=== PATIENT | female | born 1940 | race Caucasian/White ===

== ENCOUNTER 2016-12-10 08:23 | Emergency (ER) | payer OTHER, MEDICARE ==
[2016-12-10 08:39] VITALS: BMI 34.3
--- NOTE | 2016-12-10 09:16 | PDOC ---
Attending Attestation - Resident Resident Name: Rosana Gayle - ED Attending Attestation I have performed the following: I have examined & evaluated the patient, The case was reviewed & discussed with the resident, I agree w/resident's findings & plan, Exceptions are as noted - HPI HPI: 12/10/16 09:15 The pt has a history of diverticulitis and cholelithiasis who presents with constant right upper quadrant pain. - Physicial Exam PE: 12/10/16 09:16 Vitals noted She has right upper quadrant tenderness on deep palpation - Medical Decision Making 12/10/16 09:16 Will obtain labs 12/10/16 13:18 CTs noted, without any significant abnormalities Labs noted Her chest pain is extremely atypical, and very consistent with a musculoskeletal etiology A negative troponin after so many hours of continuous chest pain has a very high negative predictive value Her daughter who is a nurse, feels that she is appropriate for discharge Clinical impression: Musculoskeletal chest pain I discussed the physical exam findings, ancillary test results and final diagnoses with the patient. I answered all of the patient's questions. The patient was satisfied with the care received and felt comfortable with the discharge plan and treatment plan. The patient will call their primary care physician within 24 hours to arrange follow-up and will return to the Emergency Department with any new, persistent or worsening symptoms. Discharge Disposition - Diagnosis Muscle strain, Muscle strain of chest wall - Discharge Dispostion Disposition: HOME Last Admission D/C Date: 11/22/09 - Referrals Referrals: Destin Liang MD [Primary Care Provider] - - Patient Instructions Printed Discharge Instructions: Muscle Strain Additional Instructions: You have pain due to muscle strain of your chest wall. your can apply icy hot and use warm compress. take tylenol according to label for pain, Return to ER if pain worsens or if you develop other symptoms such as shortness of breath, leg swelling, nausea. - Post Discharge Activity
--- NOTE | 2016-12-10 09:30 | PDOC ---
History of Present Illness - General Chief Complaint: Pain Stated Complaint: PAIN UNDER THE BREAST Time Seen by Provider: 12/10/16 08:53 History Source: Patient Exam Limitations: No Limitations - History of Present Illness Initial Comments: 12/10/16 09:26 This is a 76 yo F with PMH of diverticulitis (treated 4 yrs ago with abx) and asymptomatic gall stones, who presents with RUQ abd pain since 11 am yesterday. Pain has been constants, sharp, nonradiating, aggravated by deep inspiration. It is not associated with meals and she has not had this pain before. She denies associated n/v, diarrhea, constipation, last mormal bm yesterday, no melena or hematochezia. She denies chest pain, sob, cough, sick contacts, f/c. She denies recent travel, leg swelling, hemoptysis. She denies chest pain, palpitations, orthopenea, increased exercise intolerance. Shge had a recent negative stress test. Past History - Past Medical History Allergies/Adverse Reactions: Allergies Allergy/AdvReac Type Severity Reaction Status Date / Time No Known Drug Allergies Allergy Verified 12/10/16 08:35 Home Medications: Ambulatory Orders Aspirin [Baby Aspirin] 81 mg PO DAILY 07/10/11 Bimatoprost 0.03% Ophth Soln [Lumigan (Nf)] 1 gtt OU HS 07/10/11 PARoxetine HCL [Paxil] 10 mg PO HS 07/10/11 Ranitidine HCl [Zantac] 150 mg PO BID 07/10/11 Atorvastatin Ca [Lipitor] 10 mg PO HS 03/04/12 Metoprolol Succinate [Toprol XL -] 25 mg PO HS 08/15/12 Epinastine HCl 1 gtt OU BID 01/02/13 Hydrocodone/Acetaminophen [[place] 5-325 Tablet] 1 tab PO PRN PRN #0 tablet Anemia: No Asthma: No Cancer: No Cardiac Disorders: No CVA: No COPD: No CHF: No Dementia: No Diabetes: No GI Disorders: Yes (gerd) Disorders: No HTN: No Hypercholesterolemia: Yes Liver Disease: No Seizures: No Thyroid Disease: No Other medical history: diverticulitis - Surgical History Abdominal Surgery: No Appendectomy: No Cardiac Surgery: No Cholecystectomy: No Lung Surgery: No Neurologic Surgery: No Orthopedic Surgery: Yes (ARTHROSCOPIC LEFT KNEE, SYNOVIAL FLUID INJECTION) - Psycho/Social/Smoking Cessation Hx Anxiety: No Suicidal Ideation: No Smoking History: Never smoked Have you smoked in the past 12 months: No Information on smoking cessation initiated: No Hx Alcohol Use: No Drug/Substance Use Hx: No Substance Use Type: Alcohol Hx Substance Use Treatment: No Review of Systems - Review of Systems Able to Perform ROS?: Yes Is the patient limited Maltese proficient: No Constitutional: No: Chills, Diaphoresis, Fever HEENTM: No: Nose Congestion, Throat Pain Respiratory: No: Cough, Orthopnea, Shortness of Breath, Hemoptysis Cardiac (ROS): No: Chest Pain, Edema, Irregular Heart Rate, Lightheadedness, Palpitations, Syncope ABD/GI: No: Abdominal Distended, Constipated, Diarrhea, Nausea, Rectal Bleeding , Vomiting, Tarry Stools : No: Dysuria, Flank Pain Musculoskeletal: No: Back Pain, Muscle Weakness Integumentary: No: Pruritus, Rash Neurological: No: Headache, Numbness, Paresthesia Psychiatric: No: Anxiety Endocrine: No: Change in Weight Hematologic/Lymphatic: No: Anemia, Blood Clots All Other Systems: Reviewed and Negative *Physical Exam - Vital Signs Last Vital Signs Temp Pulse Resp BP Pulse Ox 97.8 F 78 18 147/93 99 12/10/16 08:35 12/10/16 08:35 12/10/16 08:35 12/10/16 08:35 12/10/16 09:11 - Physical Exam Comments: 12/10/16 09:31 GENERAL: AAOx3 NAD HEENT: normocephalic, atraumatic, PERRLA, EOMI, sclera anicteric, conjunctiva clear CV: RRR S1S2, no murmur, no jvd PULM: CTA b/l GI: soft, nondistended, normoactive bowel sounds, mildly tender ruq, negative murphys, no guarding MUSCULOSKELETAL: R sided lower anterior rib tenderness to palpation. No LE edema , no calf tenderness NEURO: CN II-XII grossly intact 12/10/16 09:54 12/10/16 09:55 Heart Score/ECG Review #1 General ECG Interpretation: Sinus Rhythm, Normal Rate, Normal Intervals, No acute ischemic changes ED Treatment Course - LABORATORY CBC & Chemistry Diagram: 12/10/16 09:31 12/10/16 09:31 - RADIOLOGY Radiology Studies Ordered: Category Date Time Status CXRPORT [CHEST X-RAY PORTABLE*] [RAD] Stat Radiology 12/10/16 09:14 Ordered Medical Decision Making - Medical Decision Making 12/10/16 09:34 Patient presents with clinical picture most consistent with musculoskeletal chest wall pain. r/o cholecystitic, acs, RLL pna bedside US significant for gall stones, slightly thickened GB wall, no sludge, no perichilecystic inflammation or fluids, normal liver and R Kidney, no blood in Morrisons pouch, no pleural effusion. CBC s diff, cmp, mag, lipase, cardiac profile, ekg, cxr, UA EKG unremarkable 12/10/16 09:59 cxr possible infiltrate obscuring L heart boarder 12/10/16 10:19 labs unremarkable 12/10/16 12:32 12/10/16 13:00 Ct Chest abd and pelvis. small area of atelectasis corresponding to area in cxr. GB slightly distended, stone but no cholecystitis. Patient has musculoskeletal pain, stable for d/c *DC/Admit/Observation/Transfer Diagnosis at time of Disposition: Muscle strain, Muscle strain of chest wall - Discharge Dispostion Disposition: HOME Condition at time of disposition: Good Admit: No - Referrals Referrals: Destin Liang MD [Primary Care Provider] - - Patient Instructions Printed Discharge Instructions: Muscle Strain Additional Instructions: You have pain due to muscle strain of your chest wall. your can apply icy hot and use warm compress. take tylenol according to label for pain, Return to ER if pain worsens or if you develop other symptoms such as shortness of breath, leg swelling, nausea.
[2016-12-10 09:38] LABS: BASOPHIL 0.6 % (0-2.0); EOSINOPHIL 1.4 % (0-4.5); MCH 30.8 pg (25.7-33.7); MCHC 34.1 g/dl (32.0-36.0); MEAN CELL VOLUME 90.4 fl (80-96); MEAN PLT VOLUME 7.7 fl (7.5-11.1); NEUTROPHILS 62.2 % (42.8-82.8); PLATELET COUNT 204 K/MM3 (134-434); RDW 13.3 % (11.6-15.6); WHITE BLOOD COUNT 6.6 K/mm3 (4.0-10.0)
[2016-12-10 10:05] LABS: ALBUMIN 3.6 g/dl (3.4-5.0); ANION GAP 6 (8-16); BILIRUBIN,TOTAL 0.4 mg/dL (0.2-1.0); CALCIUM 9.2 mg/dL (8.5-10.1); CO2 27 mmol/L (21-32); GLUCOSE,RANDOM 103 mg/dL (74-106); SGOT/AST 16 U/L (15-37); SGPT/ALT 25 U/L (12-78)
[2016-12-10 10:08] LABS: ALK PHOS 90 U/L (45-117); TROPONIN I < 0.02 ng/ml (0.00-0.05)
[2016-12-10 11:53] LABS: URINE APPEARANCE CLEAR; URINE BILIRUBIN NEGATIVE (NEGATIVE); URINE BLOOD NEGATIVE (NEGATIVE); URINE COLOR LTYELLOW; URINE GLUCOSE (UA) NEGATIVE (NEGATIVE); URINE KETONE NEGATIVE (NEGATIVE); URINE LEUK ESTERASE NEGATIVE (NEGATIVE); URINE NITRITE NEGATIVE (NEGATIVE); URINE PROTEIN NEGATIVE (NEGATIVE); URINE UROBILINOGEN NEGATIVE E.U./dl (0.2-1.0)
--- NOTE | 2016-12-10 12:25 | EKG ---
Test Reason : Blood Pressure : / mmHG Vent. Rate : 079 BPM Atrial Rate : 079 BPM P-R Int : 170 ms QRS Dur : 070 ms QT Int : 374 ms P-R-T Axes : 052 004 053 degrees QTc Int : 428 ms NORMAL SINUS RHYTHM LOW VOLTAGE QRS BORDERLINE ECG WHEN COMPARED WITH ECG OF 12-FEB-2010 16:52, NO SIGNIFICANT CHANGE WAS FOUND Confirmed by PETE CIFUENTES MD ([id number]) on 12/10/2016 12:25:16 PM Referred By: Confirmed By:PETE CIFUENTES MD
[2016-12-10 13:33] VITALS: BP 160/80; PULSE 80; TEMP 98.3
== END 2016-12-10 13:31 | disposition home or self-care (01) ==
LOC: JER 08:23
DX: S29.011A Strain of muscle and tendon of front wall of thorax, initial encounter (principal); K80.20 Calculus of gallbladder without cholecystitis without obstruction; X58.XXXA Exposure to other specified factors, initial encounter; Y93.89 Activity, other specified
CPT/HCPCS: 36415; 71010-TC; 71250-TC; 74176-TC; 80053; 81003; 82550; 83690; 84484; 85025; 93005; 93010; 99283-25

== ENCOUNTER → 2017-09-17 | Day surgery (SDC) | payer OTHER, MEDICARE ==
--- NOTE | 2017-09-17 12:04 | OP ---
DATE OF OPERATION: 09/17/2017 PREOPERATIVE DIAGNOSIS: Left breast mass 3 o'clock, 4 cm from the nipple. POSTOPERATIVE DIAGNOSIS: Left breast mass 3 o'clock, 4 cm from the nipple. PROCEDURE: Left ultrasound-guided core biopsy with clip placement. ANESTHESIA: Local. ATTENDING SURGEON: Ansley Johnson MD ESTIMATED BLOOD LOSS: Minimal. COMPLICATIONS: None. DESCRIPTION OF PROCEDURE: Pre-procedure, patient had ultrasound of the left axilla, which revealed no suspicious adenopathy. She was placed in the supine position after consenting to the procedure. Under sterile conditions with 1% Lidocaine for local anesthesia, small janny was made in the skin. Using a 10-guage suction biopsy device via inferolateral approach, multiple cores were obtained and submitted to Pathology. Likewise, under ultrasound guidance, a bowtie clip was placed into the biopsy region. Well tolerated by patient. Steri-Strip and sterile bandage were applied. Patient went over to Mammography for post-procedure mammogram. Well tolerated by patient. Will contact her with results. ANSLEY JOHNSON M.D. [id number]
--- NOTE | 2017-09-20 14:57 | PATH ---
Surgical Pathology Report Patient Name: REECE CARREON [facility]. Rec. #: [id number] /Age/Gender: 1940 (Age: 76) / F Account: [id number] Location: [facility]-RADIOLOGY Taken: 09/17/2017 Received: 09/17/2017 Reported: 09/20/2017 Physicians: Nick Mejia M.D. Specimen(s) Received LEFT BREAST 3:00 4CM FN CORE BIOPSY Clinical History Non-palpable lesion Ultrasound findings: Highly suspicious/malignant Final Diagnosis BREAST, LEFT, 3;00 4 CM FN , CORE BIOPSY: INVASIVE DUCTAL CARCINOMA, MODERATELY DIFFERENTIATED, MEASURING AT LEAST 6 MM IN GREATEST DIMENSION IN THIS MATERIAL. (SEE NOTE) Note: The carcinoma is positive for E-Cadherin (performed at [facility]), which supports ductal phenotype. Results of ER and SD studies performed on block A at [facility] are as follows: ER (clone [id number] mouse monoclonal antibody by [employer]): > 95 % nuclear staining with strong intensity (Positive). SD (clone16 mouse monoclonal antibody by [employer]): > 95 % nuclear staining with strong intensity (Positive). Positive and negative controls (internal if applicable) show appropriate results. Formalin fixation time is within current ASCO/CAP recommendations for ER, SD and Her2 testing.Time to formalin fixation is not given; presumed immediate. Electronically Signed Claudia Akers M.D. Addendum Reported: 09/21/2017 Addendum Diagnosis Results of Her2 (IHC) & Ki-67 studies performed on block 1 at [place], [place] ([id number]) are as follows: Her2 IHC (EP3 from [employer], formerly known as [id number], using Nuñez Polymer Refine detection kit): 0 (Negative). Ki-67: 15-20% (Intermediate proliferative index). Positive and negative controls (internal if applicable) show appropriate results. Claudia Akers M.D. Gross Description Received in formalin, labeled "left breast 3N4 " is a 2.5 x 1.5 x 0.3 cm aggregate of light trent and yellow tissue admixed with blood clot. Entirely submitted in two cassettes. Time to formalin fixation: Not given, presumed immediate Total formalin fixation time: Approximately 9 hours ebram/09/17/2017
== END | disposition home or self-care (01) ==
LOC: FRAD 10:06 → FRADUS-SUR 10:06
PROVIDERS: ATTEND Surgery Surgical Oncology
PROC: 0HBU3ZX Excision of Left Breast, Percutaneous Approach, Diagnostic (ICD-10-PCS; principal; 2017-09-17)
DX: C50.812 Malignant neoplasm of overlapping sites of left female breast (principal); N63.20 Unspecified lump in the left breast, unspecified quadrant
CPT/HCPCS: 19083; 76604; 77065-TC; 87899; 88305-TC; 88342-TC; A4648

== ENCOUNTER 2017-10-19 07:49 | Day surgery (SDC) | payer OTHER, MEDICARE ==
--- NOTE | 2017-10-11 09:27 | HP ---
Admitting History and Physical - Primary Care Physician PCP: Aron Bynum - Admission Chief Complaint: Left breast cancer History of Present Illness: 76 year old postmenapausal female who had a mammogram and US 08/2017 showing new left mass 3:00 measuring 4mm. US core biopsy Left breast 3:00 showed invasive ductal carcinoma ER/PA positive and HER2 negative. MRI breast showed localized left breast cancer and seroma measuring 1.5 cm, right breast negative 09/2017. She had prior bilateral breast biopsies :right stereotactic core benign 2006, Left US core bx 1:00 benign papilloma 2009, right 6:00 density 2012 which was excised showing sclerosing lesion . She was lost to follow up until she recently had a mammmogram and US 08/2017 showing this new left breast cancer. History Source: Patient Limitations to Obtaining History: No Limitations - Past Medical History Cardiovascular: Yes: HTN, Hyperlipdemia Gastrointestinal: Yes: Diverticulitis, GERD Additional Past Medical History: glaucoma - Past Surgical History Additional Past Surgical History: BSO benign 2005 intestional polypectomy left breast core bxs 2005/2009 papilloma and benign right core bx and excisional sclerosing lesion 2012 - Smoking History Smoking history: Never smoked Have you smoked in the past 12 months: No - Alcohol/Substance Use Hx Alcohol Use: No Home Medications - Allergies Allergies/Adverse Reactions: Allergies Allergy/AdvReac Type Severity Reaction Status Date / Time No Known Drug Allergies Allergy Verified 12/10/16 08:35 - Home Medications Home Medications: Ambulatory Orders Aspirin [Baby Aspirin] 81 mg PO DAILY 07/10/11 Bimatoprost 0.03% Ophth Soln [Lumigan (Nf)] 1 gtt OU HS 07/10/11 PARoxetine HCL [Paxil] 10 mg PO HS 07/10/11 Ranitidine HCl [Zantac] 150 mg PO BID 07/10/11 Atorvastatin Ca [Lipitor] 10 mg PO HS 03/04/12 Metoprolol Succinate [Toprol XL -] 25 mg PO HS 08/15/12 Epinastine HCl 1 gtt OU BID 01/02/13 Hydrocodone/Acetaminophen [[place] 5-325 Tablet] 1 tab PO PRN PRN #0 tablet Family Disease History - Family Disease History Family History: Denies Physical Examination Constitutional: Yes: Well Nourished Breast(s): Yes: Other (Full C cup breast with ptosis. onpalpation no suspicious densities left or right breast She has a mass felt in the left axillary mid region 2 cm and is feely mobile but directed US showed benign enlarged lymph node. no supraclavicular or cervical adenopathy) Problem List - Problems (1) Breast cancer, left breast Code(s): C50.912 - MALIGNANT NEOPLASM OF UNSPECIFIED SITE OF LEFT FEMALE BREAST Qualifiers: Breast location: overlapping sites of breast Patient sex: female Assessment/Plan Left breast wide excision with mammogram needle localization ,lymphoscintogram, senetenel node biopsy ,possible axillary dissection, possible intraop radiation
[2017-10-11 19:01] VITALS: BMI 36.3
[2017-10-19] MEDS ORDERED: ceFAZolin SODIUM 1 GM VIAL ONE (11:52)
[2017-10-19] MEDS ORDERED: DEXAMETHASONE SOD PHOSPHATE 4 MG/1 ML VIAL ONE (11:52)
[2017-10-19] MEDS ORDERED: ONDANSETRON 4 MG/2 ML VIAL ONE (11:52)
[2017-10-19] MEDS ORDERED: KETOROLAC TROMETHAMINE 30 MG/1 ML VIAL ONE (11:52)
[2017-10-19] MEDS ORDERED: LIDOCAINE HCL/PF 2% SDV 5ML VIAL ONE (11:52)
[2017-10-19] MEDS ORDERED: SODIUM CHLORIDE 0.9% P/F 10 ML VIAL IJ ONE (11:52)
[2017-10-19] MEDS ORDERED: ONDANSETRON 4 MG/2 ML VIAL IVPUSH PRN ×3 (11:57→16:33)
[2017-10-19] MEDS ORDERED: oxyCODONE HCL 5 MG TABLET PO PRN ×4 (11:57→16:33)
[2017-10-19] MEDS ORDERED: LACTATED RINGERS SOLUTION 1,000 ML IV SCH ×2 (12:00→16:45)
[2017-10-19] MEDS ORDERED: ISOSULFAN BLUE 10 MG/ML VIAL SQ ONE (12:21)
[2017-10-19] MEDS ORDERED: LIDOCAINE HCL 1%, 10 MG/ML (20ML VIAL) ONE (12:21)
[2017-10-19] MEDS ORDERED: PROPOFOL 20 ML ONE (13:29)
[2017-10-19] MEDS ORDERED: MIDAZOLAM HCL 2 MG/2 ML SINGLE DOSE VIAL ONE (13:29)
[2017-10-19] MEDS ORDERED: ePHEDrine SULFATE 50 MG/1 ML AMPULE ONE (13:55)
[2017-10-19] MEDS ORDERED: BUPIVACAINE HCL/PF 2.5 MG/ML - 30 ML VIAL IJ ONE (14:24)
[2017-10-19] MEDS ORDERED: KETOROLAC TROMETHAMINE 30 MG/1 ML VIAL IVPUSH ONE (15:15)
[2017-10-19] MEDS ORDERED: DEXTROSE 5%-0.45% SALINE 1,000 ML IV SCH (15:15)
--- NOTE | 2017-10-19 16:32 | OP ---
DATE OF OPERATION: 10/19/2017 PREOPERATIVE DIAGNOSIS: Left breast cancer, overlapping regions. POSTOPERATIVE DIAGNOSIS: Left breast cancer, overlapping regions. PROCEDURE: Left breast partial mastectomy with mammographic needle localization and left axillary sentinel lymph node biopsy with intraoperative radiation. ANESTHESIA: General laryngeal mask airway anesthesia. PRIMARY SURGEON: Nissa Bynum MD STEAMSHIP AGENT: JHOAN Cm RADIATION ONCOLOGIST: Alin Haider MD COMPLICATIONS: There were no complications. Briefly, the patient is a 76-year-old, postmenopausal, G6, P4, Sudanese female with no family history of breast or ovarian cancer. She underwent mammography and ultrasound showing a new left breast 3 o'clock density measuring about 4 mm. An ultrasound-guided core biopsy showed a moderately differentiated invasive duct cancer, ER/UT positive, HER-2/samir negative, with a Ki-67 of 15% to 20%. MRI shows this to be localized with a surrounding seroma. The patient was advised on undergoing a left breast wide excision with sentinel lymph node biopsy and was offered intraoperative radiation. She was seen by the radiation oncologist preoperatively and was thought to be a good candidate and signed up for the TARGIT US trial. The patient was brought in for the procedure on October 19, 2017. She first underwent a needle localization and lymphoscintigraphy in the left breast through a periareolar injection of technetium 99 at [facility] and then was brought to the [place] holding area. In the holding area, site verification was made and informed consent was obtained. She signed consent for the intraoperative radiation as well. She was brought in to the operating room and laid on the OR table in the supine position. Venodynes were placed on the lower extremities. She received 1 g of Ancef prior to incision. She underwent general laryngeal mask airway anesthesia. The left breast was sterilely prepped and draped in the usual fashion, with the wire prepped in the field. Then 3 mL of Lymphazurin blue were injected intradermally and peritumorally around the needle localization site. A sentinel lymph node biopsy was first performed. An incision was made just below the hair-bearing area of the left axilla and dissection was undertaken using the NeoProbe to direct the dissection. A hot node was easily found in the lower left axillary region, level 1, [place] 10[place] [id number]. No blue dye was seen and there were no other hot nodes found in the left axillary region. The sentinel node was removed with a non-sentinel node, which was sent separately and both were sent for permanent section to Pathology. Background counts after removal of these 2 nodes was 798 and no other hot or blue nodes were found. Hemostasis was achieved. At this point, a wide excision was undertaken around the needle localization site. A curvilinear incision was made around the needle localization. Dissection was undertaken around the wire. The breast tissue was completely removed from around the wire, with the wire in the middle of the specimen. The specimen was removed all the way down to the pectoralis major muscle. There was felt to be some extra firm tissue more anterior to the needle localization, which was removed with the wide excision. The specimen was oriented with a long lateral, short superior suture, and specimen radiographs showed removal of the clip in question. At this point, separate margins were taken on the superior, inferior, medial, lateral, deep, and anterior margins. Given the proximity towards the anterior margin, a separate furthest anterior margin was also sent. All the margins were marked with a suture marking the biopsy cavity side and sent separately in formalin to Pathology as margins. Hemostasis was achieved. At this point, intraoperative radiation was accomplished with a 4-cm Intrabeam device. A 2-0 plain suture was used to pursestring the breast tissue around the device and we used ultrasound to confirm distance from the skin of greater than 1 cm in all 4 quadrants. After the radiation was finished, after about 30 minutes, the device was removed. A 4 x 3 cm tissue transfer closure was then accomplished by undermining the breast tissue and bringing it into the wound to close the defect. The breast tissue was reapproximated using 2-0 plain suture. The skin was closed using interrupted 3-0 deep dermal Vicryl suture and a running 4-0 subcuticular Biosyn suture. The axillary wound was closed in a similar fashion using interrupted 3-0 deep dermal Vicryl suture and a running 4-0 subcuticular Biosyn suture. Mastisol, Steri-Strips applied over the wound. The patient will be placed in a surgical bra postoperatively and laryngeal mask airway tube was removed at the end of the case. The patient will be recovered in the post-anesthesia care and she will be discharged home the same day once discharge criteria are met. Estimated blood loss was about 30 mL. She was hemodynamically stable throughout. NISSA BYNUM M.D. [id number]
[2017-10-19] MEDS ORDERED: PROMETHAZINE HCL 25 MG/1 ML VIAL IVPB PRN (16:33)
[2017-10-19 18:22] VITALS: TEMP 97.5
--- NOTE | 2017-10-19 18:42 | OP ---
DATE OF OPERATION: 10/19/2017 PROCEDURE: Post-lumpectomy intraoperative radiation therapy for left breast cancer. PREOPERATIVE DIAGNOSIS: Left breast cancer. POSTOPERATIVE DIAGNOSIS: Left breast cancer. ATTENDING SURGEON: Aron Bynum MD SLUDGE CONTROL ATTENDANT/RADIATION ONCOLOGIST: Jose Haider MD ANESTHESIA: General. COMPLICATIONS: None. INDICATIONS: The patient is a 76-year-old woman with a clinical stage IA, T1b M0 N0 invasive ductal carcinoma of the left breast who has elected breast conservation with post-lumpectomy intraoperative radiation therapy. DESCRIPTION OF PROCEDURE: Dr. Bynum performed left lumpectomy and sentinel lymph node biopsy which he has dictated. After excision of additional margins, the lumpectomy cavity was prepared, incised with a 4.0-cm diameter spherical applicator. The applicator was placed into the surgical cavity at the 3:00 left breast and the surrounding breast tissues were cinched around the applicator with a Vicryl pursestring suture. I performed a clinical and ultrasound simulation to ensure that the applicator was located within the operative bed with close apposition of the surrounding breast tissue to the surface of the applicator. Ultrasound measurements showed a minimum distance of 1.5 cm between skin and applicator surface at the 12 o'clock aspect of the applicator. Saline soaked gauze was placed between the skin and breast tissue to maximize skin separation. Shielding material was placed over the breast to reduce scatter radiation. The patient received a total dose of 20 Gy to zero millimeters from the applicator surface using 50 kV x-rays by the Intrabeam system. Prior to treatment, the system was double checked using appropriate physics quality control supervisor measures. The time required for the treatment was 26 minutes 53 seconds at a dose rate of 0.742 Gy per minute. When the treatment was completed, survey of the patient and the room confirmed that the Intrabeam source was off. There were no complications or unexpected interruptions. Dr. Bynum removed the radiation applicator from the patient and completed the surgery. The patient will be transferred to the recovery room following the surgery. JOSE HAIDER M.D. [id number] cc: Aron Bynum MD [facility]
[2017-10-19 19:05] VITALS: BP 138/80; PULSE 74
--- NOTE | 2017-10-26 09:30 | PATH ---
Surgical Pathology Report Patient Name: REECE CARREON [facility]. Rec. #: [id number] /Age/Gender: 1940 (Age: 76) / F Account: [id number] Location: [facility] AMBULATORY Taken: 10/19/2017 Received: 10/19/2017 Reported: 10/26/2017 Physicians: Aron Bynum M.D. Specimen(s) Received A: LEFT SENTINEL LYMPH NODE #1 B: LEFT NON-SENTINEL LYMPH NODE C: LEFT BREAST WIDE EXCISION D: LEFT BREAST ANTERIOR MARGIN E: LEFT BREAST SUPERIOR MARGIN F: LEFT BREAST LATERAL MARGIN G: LEFT BREAST INFERIOR MARGIN H: LEFT BREAST MEDIAL MARGIN I: LEFT BREAST DEEP MARGIN J: LEFT BREAST FURTHEST ANTERIOR MARGIN Clinical History Invasive Ca Final Diagnosis A. LYMPH NODE, LEFT SENTINEL #1, EXCISION: METASTATIC CARCINOMA, EXTENSIVELY INVOLVING ONE OF ONE LYMPH NODE (06/21). THE FOCUS OF METASTATIC CARCINOMA MEASURES 1.0 CM IN GREATEST DIMENSION (MACROMETASTASIS). EXTRANODAL EXTENSION IS PRESENT. B. LYMPH NODE, LEFT NON-SENTINEL, EXCISION: ONE LYMPH NODE, NEGATIVE FOR METASTATIC CARCINOMA (0/1). C. BREAST, LEFT, WIDE EXCISION: FOCAL RESIDUAL INVASIVE DUCTAL CARCINOMA, MODERATELY DIFFERENTIATED, MEASURING UP TO 1 MM IN GREATEST DIMENSION, MICROSCOPICALLY. (SEE NOTE) FOCAL DUCTAL CARCINOMA IN SITU (DCIS), SOLID TYPE, INTERMEDIATE NUCLEAR GRADE. SURGICAL MARGINS ARE UNINVOLVED BY INVASIVE CARCINOMA AND DCIS; INVASIVE CARCINOMA IS AT 4 MM FROM THE CLOSEST (ANTERIOR) MARGIN AND DCIS IS AT 1.5 MM FROM THE CLOSEST (ANTERIOR) MARGIN. SEE SPECIMENS D-J FOR FINAL MARGINS. NO LYMPHOVASCULAR INVASION IS IDENTIFIED. PRIOR BIOPSY SITE CHANGES ARE PRESENT. REMAINING BREAST TISSUE SHOWS EXTENSIVE SCLEROSING ADENOSIS, NODULAR ADENOSIS AND PROLIFERATIVE FIBROCYSTIC CHANGES INCLUDING FLORID USUAL DUCTAL HYPERPLASIA (UDH) AND CYSTIC APOCRINE METAPLASIA. PATHOLOGIC STAGE (pTNM): pT1b pN1a. (SEE NOTE) SEE ALSO INVASIVE CARCINOMA CASE SUMMARY BELOW. NOTE: The largest focus of invasive carcinoma identified on prior left breast core biopsy ([id number]) is 6 mm, based on which the "pT" stage is "pT1b". Myoepithelial immunohistochemical markers (SMM-HC and p63, performed at [facility]) demonstrate the lack of myoepithelial cells in the invasive carcinoma. This finding supports the diagnosis. D. BREAST, LEFT, ANTERIOR MARGIN, EXCISION: FOCAL ATYPICAL DUCTAL HYPERPLASIA (ADH) AND PROLIFERATIVE FIBROCYSTIC CHANGES INCLUDING CYSTIC APOCRINE METAPLASIA WITH FLORID USUAL DUCTAL HYPERPLASIA (UDH) AND SCLEROSING ADENOSIS. (SEE NOTE) Myoepithelial immunohistochemical markers (SMM-HC and p63, performed at [facility]) demonstrate the presence of myoepithelial cells in the foci of sclerosing adenosis with associated usual ductal hyperplasia. This finding supports the diagnosis. E. BREAST, LEFT, SUPERIOR MARGIN, EXCISION: FOCAL ATYPICAL DUCTAL HYPERPLASIA (ADH), SMALL INTRADUCTAL PAPILLOMA, SCLEROSING ADENOSIS, PROLIFERATIVE FIBROCYSTIC CHANGES INCLUDING CYSTIC APOCRINE METAPLASIA AND USUAL DUCTAL HYPERPLASIA (UDH). F. BREAST, LEFT, LATERAL MARGIN, EXCISION: BENIGN BREAST TISSUE SHOWING SMALL FIBROADENOMA AND FIBROCYSTIC CHANGES. G. BREAST, LEFT, INFERIOR MARGIN, EXCISION: BENIGN BREAST TISSUE. H. BREAST, LEFT, MEDIAL MARGIN, EXCISION: BENIGN BREAST TISSUE SHOWING SCLEROSING ADENOSIS. I. BREAST, LEFT, DEEP MARGIN, EXCISION: BENIGN FIBROADIPOSE TISSUE. J. BREAST, LEFT, FURTHEST ANTERIOR MARGIN, EXCISION: BENIGN BREAST TISSUE. Comments Breast Invasive Carcinoma: Surgical Pathology Case Summary (Based on AJCC TNM 8 th edition) Procedure _X_ Excision (less than total mastectomy) Specimen Laterality _X_ Left Tumor Size _X_ Greatest dimension of largest invasive focus >1 mm (specify exact measurement) (millimeters): 6 mm (in prior core biopsy [id number]) Histologic Type _X_ Invasive carcinoma of no special type (ductal, not otherwise specified) Histologic Grade (Mary Histologic Score) (based on prior core biopsy ([id number]) with largest representation of carcinoma) Glandular (Acinar)/Tubular Differentiation _X_ Score 2 (10% to 75% of tumor area forming glandular/tubular structures) Nuclear Pleomorphism _X_ Score 2 Mitotic Rate _X_ Score 2 Overall Grade _X_ Grade 2 (scores of 6 or 7) Tumor Focality _X_ Single focus of invasive carcinoma Ductal Carcinoma In Situ (DCIS) _X_ DCIS is present in specimen _X_ Negative for extensive intraductal component (EIC) Margins Invasive Carcinoma Margins _X_ Uninvolved by invasive carcinoma Distance from closest margin (millimeters): 4 mm from the closest anterior margin in wide excision C. Final anterior margins (D&J) are negative for carcinoma DCIS Margins _X_ Uninvolved by DCIS Distance from closest margin (millimeters): 1.5 mm from the closest anterior margin in wide excision C. Final anterior margins (D&J) are negative for DCIS Regional Lymph Nodes Number of Lymph Nodes with Macrometastases (>2 mm): 1 Number of Lymph Nodes with Micrometastases (>0.2 mm to 2 mm and/or >200 cells): 0 Number of Lymph Nodes with Isolated Tumor Cells (=0.2 mm and =200 cells): 0 Size of Largest Metastatic Deposit (millimeters): 10 mm Extranodal Extension: _X_ Present Number of Lymph Nodes Examined: 2 Number of Herman Nodes Examined : 1 Treatment Effect _X_ No known presurgical therapy Lymphovascular Invasion _X_ Not identified Pathologic Stage Classification (pTNM, AJCC 8th Edition) Primary Tumor (Invasive Carcinoma) (pT) _X_ pT1b: Tumor >5 mm but =10 mm in greatest dimension Regional Lymph Nodes (pN) Category (pN) _X_ pN1a (sn): Metastases in 1 to 3 axillary lymph nodes, at least 1 metastasis larger than 2.0 mm Biomarker Studies Results of ER and IL studies performed on prior biopsy ([id number]) at [facility] are as follows: ER (clone [id number] mouse monoclonal antibody by [employer]): > 95 % nuclear staining with strong intensity (Positive). IL (clone16 mouse monoclonal antibody by [employer]): > 95 % nuclear staining with strong intensity (Positive). Results of Her2 (IHC) & Ki-67 studies performed on prior biopsy ([id number]) at [place], [place] ([id number]) are as follows: Her2 IHC (EP3 from [employer], formerly known as [id number], using Nuñez Polymer Refine detection kit): 0 (Negative). Ki67: 15-20% (Intermediate proliferative index). Electronically Signed Claudia Akers M.D. Gross Description A. Received in formalin labeled "left sentinel lymph node #1," is a 2.0 x 1.0 x 0.6 cm trent, irregular lymph node. The specimen is bisected and entirely submitted in one cassette. B. Received in formalin labeled "left non-sentinel lymph node," is a 1.2 x 0.7 x 0.5 cm trent, irregular lymph node. The specimen is bisected and entirely submitted in one cassette. C. Received in formalin, labeled "left breast wide excision," is a 6.5 x 4.0 x 2.8 cm. trent-yellow, irregular, portion of fibroadipose tissue. There is a needle localization wire separately received within the same container which appears to have detached from the specimen. There is a short suture marking the superior aspect and a long suture marking the lateral aspect, per the surgeon. There is no skin present. The specimen is inked as follows: superior and lateral blue; inferior green; medial yellow; anterior red; deep black. The specimen is serially sectioned from superior to inferior. Sectioning reveals a 1.2 x 1.0 x 1.0 cm fibrous indurated ill-defined mass associated with a focus of hemorrhage, consistent with a previous biopsy site. The mass abuts the medial margin and anterior margins and is 0.4 cm from the deep margin. The remaining margins appear widely clear of the mass. The remaining breast parenchyma displays multifocal firm fibrous tissue. Tank Crew[employer] sections are submitted in 9 cassettes as follows: 1-full-face section of mass with medial, anterior and deep margins; 2-additional mass with medial, anterior and deep margins; 3-additional mass with anterior margin; 4-lateral margin; 5-superior margin; 6-inferior margin; 0-0-huzaksvewu fibrous tissue with anterior and deep margins. Time to formalin fixation: 4 minutes Total formalin fixation time: Approximately 27 hours. D. Received in formalin labeled "left breast anterior margin," is a 2.7 x 2.2 x 0.7 cm portion of fibroadipose tissue with a suture marking the biopsy cavity side, per the surgeon. The new margin is inked blue and the specimen is serially sectioned. The specimen is entirely submitted in 3 cassettes. E. Received in formalin labeled "left breast superior margin," is a 2.3 x 1.7 x 0.5 cm portion of fibroadipose tissue with a suture marking the biopsy cavity side, per the surgeon. The new margin is inked blue and the specimen is serially sectioned. The specimen is entirely submitted in 3 cassettes. F. Received in formalin labeled "left breast lateral margin," is a 2.2 x 2.0 x 0.4 cm portion of fibroadipose tissue with a suture marking the biopsy cavity side, per the surgeon. The new margin is inked blue and the specimen is serially sectioned. The specimen is entirely submitted in 2 cassettes. G. Received in formalin labeled "left breast inferior margin," is a 2.8 x 2.3 x 0.6 cm portion of fibroadipose tissue with a suture marking the biopsy cavity side, per the surgeon. The new margin is inked blue and the specimen is serially sectioned. The specimen is entirely submitted in 3 cassettes. H. Received in formalin labeled "left breast medial margin," is a 3.0 x 2.7 x 0.8 cm portion of fibroadipose tissue with a suture marking the biopsy cavity side, per the surgeon. The new margin is inked blue and the specimen is serially sectioned. The specimen is entirely submitted in 4 cassettes. I. Received in formalin labeled "left breast deep margin," is a 2.5 x 1.9 x 0.8 cm portion of fibroadipose tissue with a suture marking the biopsy cavity side, per the surgeon. The new margin is inked blue and the specimen is serially sectioned. The specimen is entirely submitted in 3 cassettes. J. Received in formalin labeled "left breast furthest anterior margin," is a 2.8 x 1.8 x 0.4 cm portion of fibroadipose tissue with a suture marking the biopsy cavity side, per the surgeon. The new margin is inked blue and the specimen is serially sectioned. The specimen is entirely submitted in 3 cassettes. 10/20/201710/20/2017
== END 2017-10-19 19:15 | disposition home or self-care (01) ==
LOC: FASU 07:49
PROVIDERS: ATTEND Surgery Surgical Oncology
PROC: 0HBU0ZZ Excision of Left Breast, Open Approach (ICD-10-PCS; principal; 2017-10-19 13:57)
PROC: DMY07ZZ Contact Radiation of Left Breast (ICD-10-PCS; 2017-10-19 13:57)
DX: C50.812 Malignant neoplasm of overlapping sites of left female breast (principal); I10 Essential (primary) hypertension; E78.5 Hyperlipidemia, unspecified; K21.9 Gastro-esophageal reflux disease without esophagitis; Z79.82 Long term (current) use of aspirin
CPT/HCPCS: 19281; 76641-TC-50; 77290; 77300; 77316; 77332; 77370-TC; 77424; 78195-TC; 88307-TC; 88341-TC; 88342-TC; 94760; A9541; C9726

== ENCOUNTER 2020-03-02 22:20 | Emergency (ER) | payer OTHER, MEDICARE ==
[2020-03-02 22:30] VITALS: BMI 36.6
--- NOTE | 2020-03-02 22:49 | PDOC ---
Attending Attestation - Resident Resident Name: Maxi Philip - ED Attending Attestation I have performed the following: I have examined & evaluated the patient, The case was reviewed & discussed with the resident, I agree w/resident's findings & plan - HPI HPI: 03/02/20 23:56 Pt comes with 1 day of LLQ pain that radiates to the left flank. SHe has no hx of kidney stones, but she has had diverticulitis in the past. She has no fever. She is constipated for a while, as she is passing pellet like stools. Pt is prediabetic and was told that she needs to eat more fruits and veggies, and has a lot of gas.Pt has a hx of diverticulitis and feels that this may be what is happening. She was recently given abx BID x 1 week for diverticulitis. Pt has no dysuria, but she states that her urine is "hot." No odor and no hematuria SHe has no other complaints. 03/03/20 00:05 Hx of oopherectomy; mastectomy, cataracts no allergies pt has Dr. Hester and Dr. Hodges as her orthopedists. her PMD is comentucci her GI doc is - Physicial Exam PE: 03/03/20 00:03 Afebrile HEENT normal; eyes cataract surg L:ungs CTA B heart RRR abd: LLQ pain with palpation and left flank pain with percussion neuro normal exam left knee arthritis. 03/03/20 00:04 - Medical Decision Making 03/03/20 00:13 CBC normal; UA normal 03/03/20 01:02 Patient Name: REECE CARREON THIS IS A PRELIMINARY REPORT DATE OF SERVICE: 2020-03-03 00:32:17 IMAGES: [id number] EXAM: ABDOMEN \\T\\ PELVIS CT WITH CONTR HISTORY: Left lower quadrant pain COMPARISON: None. FINDINGS: Lung bases are clear other than mild lingular atelectasis or scarring. The visualized cardiac chambers are normal size and configuration. Normal liver, gallbladder, pancreas, spleen, adrenal glands and kidneys. Small hiatal hernia is noted. There is mild inflammation of the proximal sigmoid colon with associated diverticulosis, indicating acute diverticulitis. No bowel obstruction, abscess or free air. There is no aortic aneurysm. There is no s ignificant retroperitoneal lymphadenopathy. The appendix is normal.. The uterus and adnexal structures are normal. Urinary bladder is unremarkable. There is trace pelvic free fluid. No discrete pelvic lymphadenopathy is identified. IMPRESSION: Uncomplicated mild sigmoid diverticulitis. 03/03/20 01:09 home with levaquin and flagyl Discharge - Discharge Information Problems reviewed: Yes Clinical Impression/Diagnosis: Sigmoid diverticulitis Condition: Improved Disposition: HOME - Additional Discharge Information Prescriptions: metroNIDAZOLE [Flagyl -] 500 mg PO DAILY #21 tablet Levofloxacin [Levaquin] 500 mg PO DAILY #6 tablet - Follow up/Referral Referrals: Destin Liang MD [Primary Care Provider] - Mainor Vazquez MD [Staff Physician] - - Patient Discharge Instructions Patient Printed Discharge Instructions: DI for Diverticulitis Additional Instructions: Please make a follow up appointment with your PCP and your GI doctor (Dr. Vazquez). Referrals provided here. If you experience any new, worsening, or concerning symptoms, including worsening abdominal pain, blood in the stool, severe nausea/vomiting, or any other concerns, please return to the emergency department. - Post Discharge Activity
--- NOTE | 2020-03-02 23:16 | PDOC ---
History of Present Illness - General Chief Complaint: Pain, Acute Stated Complaint: abdominal pain Time Seen by Provider: 03/02/20 22:48 - History of Present Illness Initial Comments: Queenie Cooley is a 79 y/o female with PMH significant for diverticulosis/diverticulitis (diagnosed 30 years ago, no flare ups for 5 years), glaucoma, breast cancer currently undergoing radiation (last tx 3 weeks ago), presenting today with LLQ abdominal pain. Reports that the pain started 2 weeks ago and she was started on an abx for 10 days by her PCP Dr. Liang. States that she finished her course but continued to have abd pain. Reports some constipation that improved with prune juice. No diarrhea. No nausea/vomiting. No blood in the stool. No hematuria. Reports mild feeling of warmth on urination. No fever/chills. No chest pain/shortness of breath. No back pain. No leg swelling. No cough. No headache. Last colonscopy 6 years ago. SurgHx: tubes tied and oopherectomy 40 years ago. Past History - Medical History Allergies/Adverse Reactions: Allergies Allergy/AdvReac Type Severity Reaction Status Date / Time No Known Drug Allergies Allergy Verified 10/11/17 19:20 Home Medications: Ambulatory Orders Bimatoprost 0.03% Ophth Soln [Lumigan (Nf)] 1 gtt OU HS 07/10/11 PARoxetine HCL [Paxil] 10 mg PO HS 07/10/11 Ranitidine HCl [Zantac] 150 mg PO BID 07/10/11 Atorvastatin Ca [Lipitor] 10 mg PO HS 03/04/12 Metoprolol Succinate [Toprol XL -] 37.5 mg PO DAILY 08/15/12 Ketotifen Fumarate [Zaditor] 1 drop OU BID 10/11/17 Timolol Maleate [Istalol] 1 drop OU DAILY 10/11/17 Aspirin 81 mg PO DAILY 06/29/19 Rhopressa 1 DAILY 06/29/19 Levofloxacin [Levaquin] 500 mg PO DAILY #6 tablet 03/03/20 metroNIDAZOLE [Flagyl -] 500 mg PO DAILY #21 tablet 03/03/20 Anemia: No Asthma: No Cancer: Yes (L breast) Cardiac Disorders: No CVA: No COPD: No CHF: No Dementia: No Diabetes: No GI Disorders: Yes (diverticulitis,gallstones) Disorders: No HTN: No Hypercholesterolemia: Yes Liver Disease: No Seizures: No Thyroid Disease: No - Surgical History Abdominal Surgery: No Appendectomy: No Cardiac Surgery: No Cholecystectomy: No Lung Surgery: No Neurologic Surgery: No Orthopedic Surgery: Yes (ARTHROSCOPIC LEFT KNEE, SYNOVIAL FLUID INJECTION) - Psycho-Social/Smoking History Smoking History: Never smoked Have you smoked in the past 12 months: No - Substance Abuse Hx (Audit-C & DAST Scrn) How often the patient has a drink containing alcohol: Never Score: In Men: 4 or > Positive; In Women: 3 or > Positive: 0 Screen Result (Pos requires Nsg. Audit-10AR): Negative In the last yr the pt used illegal drug/Rx for NonMed reason: No Score: Yes response is considered Positive: 0 Screen Result (Positive result requires Nsg. DAST-10): Negative Review of Systems - Review of Systems Comments:: GENERAL/CONSTITUTIONAL: No fever or chills. No weakness._ HEAD, EYES, EARS, NOSE AND THROAT: No change in vision. No change in hearing. No sore throat._ CARDIOVASCULAR: No chest pain or shortness of breath_ RESPIRATORY: Denies cough, hemoptysis_ GASTROINTESTINAL: No nausea, vomiting, diarrhea. Reports constipation and abdominal pain. GENITOURINARY: No dysuria, frequency, or change in urination._ MUSCULOSKELETAL: No joint or muscle swelling or pain. No neck or back pain._ SKIN: No rash_ NEUROLOGIC: No headache, vertigo, loss of consciousness, or change in strength/sensation._ ENDOCRINE: No increased thirst. No abnormal weight change_ HEMATOLOGIC/LYMPHATIC: No anemia, easy bleeding, or history of blood clots._ ALLERGIC/IMMUNOLOGIC: No hives or skin allergy._ *Physical Exam - Vital Signs Last Vital Signs Temp Pulse Resp BP Pulse Ox 98.5 F 83 19 113/89 98 03/02/20 22:27 03/02/20 22:27 03/02/20 22:27 03/02/20 22:27 03/02/20 22:27 - Physical Exam GENERAL: Awake, alert, and oriented to person/place/time, in no acute distress_ HEAD: No signs of trauma, normocephalic, atraumatic _ EYES: PERRLA, EOMI, sclera anicteric, conjunctiva clear_ ENT: Hearing grossly normal, nares patent, oropharynx clear without exudates. No uvular deviation. Moist mucosa_ NECK: Normal ROM, supple, no lymphadenopathy, JVD, or masses_ LUNGS: No distress, speaks in full sentences, clear to auscultation bilaterally _ HEART: Regular rate and rhythm, normal S1 and S2, no murmurs appreciated, peripheral pulses normal and equal bilaterally._ ABDOMEN: Soft, TTP LLQ with no rebound or guarding, normoactive bowel sounds. No masses. Non distended. BACK: No CVA TTP bilaterally. EXTREMITIES: Normal inspection, Normal range of motion, no edema. No clubbing or cyanosis. Full ROM of bilateral hips. NEUROLOGICAL: Cranial nerves II through XII grossly intact. Normal speech, normal gait, no focal sensorimotor deficits _ SKIN: Warm, Dry, normal turgor, no rashes or lesions noted_ ED Treatment Course - LABORATORY CBC & Chemistry Diagram: 03/02/20 23:50 03/02/20 23:50 - RADIOLOGY Radiology Studies Ordered: Category Date Time Status ABDOMEN & PELVIS CT WITH CONTR [CT] Stat CT Scan 03/02/20 23:04 Ordered Medical Decision Making - Medical Decision Making 03/02/20 23:16 79F hx of diverticulitis and breast CA undergoing radiation presenting today with 2 weeks of LLQ abdominal pain and constipation. Reports that she saw her PCP two weeks ago and was given abx but pain continues. DDX includes diverticulitis vs UTI vs other intra-abdominal etiology. -CT abd/pelv with IV contrast -cbc, cmp -ua, ucx 03/02/20 23:40 Per [facility], pt was placed on Cefuroxime 500 mg BID for 7 days on 01/21/2020, rx by Dr. Liang. 03/03/20 00:04 Pt s/o to Dr. Sanford pending CT scan, labs, and further work up. Discharge - Discharge Information Problems reviewed: Yes Clinical Impression/Diagnosis: Sigmoid diverticulitis Condition: Improved Disposition: HOME - Admission No - Additional Discharge Information Prescriptions: metroNIDAZOLE [Flagyl -] 500 mg PO DAILY #21 tablet Levofloxacin [Levaquin] 500 mg PO DAILY #6 tablet - Follow up/Referral Referrals: Destin Liang MD [Primary Care Provider] - Mainor Vazquez MD [Staff Physician] - - Patient Discharge Instructions Patient Printed Discharge Instructions: DI for Diverticulitis Additional Instructions: Please make a follow up appointment with your PCP and your GI doctor (Dr. Vazquez). Referrals provided here. If you experience any new, worsening, or concerning symptoms, including worse christy abdominal pain, blood in the stool, severe nausea/vomiting, or any other concerns, please return to the emergency department. - Post Discharge Activity
[2020-03-02 23:59] LABS: BASO % 0.3 % (0-2.0); EOS % 0.6 % (0-4.5); HEMOGLOBIN 12.5 GM/dL (10.7-15.3); LYMPH % 14.3 % (8-40); MCH 31.2 pg (25.7-33.7); MCHC 34.7 g/dl (32.0-36.0); MEAN PLT VOLUME 7.7 fl (7.5-11.1); MONO % 9.9 % (3.8-10.2); NEUT % 74.9 % (42.8-82.8); PLATELET COUNT 234 K/MM3 (134-434); RDW 13.3 % (11.6-15.6); URINE APPEARANCE CLEAR; URINE BILIRUBIN NEGATIVE (NEGATIVE); URINE COLOR YELLOW; URINE GLUCOSE (UA) NEGATIVE (NEGATIVE); URINE KETONE NEGATIVE (NEGATIVE); URINE LEUK ESTERASE NEGATIVE (NEGATIVE); URINE NITRITE NEGATIVE (NEGATIVE); URINE PROTEIN NEGATIVE (NEGATIVE); URINE UROBILINOGEN 0.2 mg/dL (0.2-1.0); WHITE BLOOD COUNT 10.3 K/mm3 (4.0-10.0)
--- NOTE | 2020-03-03 00:03 | PDOC ---
*Physical Exam - Vital Signs Last Vital Signs Temp Pulse Resp BP Pulse Ox 98.5 F 83 19 113/89 98 03/02/20 22:27 03/02/20 22:27 03/02/20 22:27 03/02/20 22:27 03/02/20 22:27 ED Treatment Course - LABORATORY CBC & Chemistry Diagram: 03/02/20 23:50 03/02/20 23:50 - ADDITIONAL ORDERS Additional order review: Laboratory Results 03/02/20 23:50 Urine Color Yellow Urine Appearance Clear Urine pH 5.0 Ur Specific [place] 1.012 Urine Protein Negative Urine Glucose (UA) Negative Urine Ketones Negative Urine Blood Negative Urine Nitrite Negative Urine Bilirubin Negative Urine Urobilinogen 0.2 Ur Leukocyte Esterase Negative 03/02/20 23:50 RBC 4.00 MCV 90.0 MCHC 34.7 RDW 13.3 MPV 7.7 Neutrophils % 74.9 Lymphocytes % 14.3 D Monocytes % 9.9 Eosinophils % 0.6 Basophils % 0.3 Medical Decision Making - Medical Decision Making 03/03/20 00:01 79 y./o female pmh diverticulitis 30 years ago. Last flareup 5 years ago. Breast cancer last radiation 3 weeks ago. Presenting with l sided abdominal pain x2 weeks. Denies diarrhea. Admits to mild constipation improved with prune juice. No blood in stool. Denies n/v. Similar flareup beginning of january. Prescribed cefuroxime 500 mg bid x7d. Finished course. Pending CT IV contrast Labs UA 03/03/20 00:31 Labs WNL 03/03/20 01:10 CT Abd/Pelvis: IMPRESSION: Uncomplicated mild sigmoid diverticulitis. -- On re-assessment patient is well, pain is controlled. Can treat as outpatient - Patient failed outpatient cefuroxime. Will d/c with Levoquin/Flagyl for one week. Discharge - Discharge Information Problems reviewed: Yes Clinical Impression/Diagnosis: Sigmoid diverticulitis Condition: Improved Disposition: HOME - Additional Discharge Information Prescriptions: metroNIDAZOLE [Flagyl -] 500 mg PO DAILY #21 tablet Levofloxacin [Levaquin] 500 mg PO DAILY #6 tablet - Follow up/Referral Referrals: Destin Liang MD [Primary Care Provider] - Mainor Vazquez MD [Staff Physician] - - Patient Discharge Instructions Patient Printed Discharge Instructions: DI for Diverticulitis Additional Instructions: Please make a follow up appointment with your PCP and your GI doctor (Dr. Vazquez). Referrals provided here. If you experience any new, worsening, or concerning symptoms, including worsening abdominal pain, blood in the stool, severe nausea/vomiting, or any other concerns, please return to the emergency department. - Post Discharge Activity
[2020-03-03 00:26] LABS: BILIRUBIN,TOTAL 0.5 mg/dL (0.2-1); BLOOD UREA NITROGEN 16.7 mg/dL (7-18); CALCIUM 10.2 mg/dL (8.5-10.1); POTASSIUM 4.1 mmol/L (3.5-5.1)
[2020-03-03] MEDS ORDERED: metroNIDAZOLE 250 MG TABLET PO ONE (01:10)
[2020-03-03] MEDS ORDERED: metroNIDAZOLE 250 MG TABLET ONE (01:55)
[2020-03-03 06:29] VITALS: BP 134/75; PULSE 90; TEMP 98.9
== END 2020-03-03 06:36 | disposition home or self-care (01) ==
LOC: JER 22:20
DX: K57.32 Diverticulitis of large intestine without perforation or abscess without bleeding (principal)
CPT/HCPCS: 36415; 74177-TC; 80053; 81003; 85025; 87086; 99285-25; Q9967

== ENCOUNTER 2023-06-15 04:40 | Day surgery (SDC) | payer OTHER, MEDICARE ==
[2023-06-10 17:16] VITALS: BMI 35.5
[~2023-06-15 04:40] MED LIST: LIDOCAINE HCL/PF 2% SDV 5ML VIAL INF ONE
[2023-06-15] MEDS ORDERED: LIDOCAINE HCL/PF 2% SDV 5ML VIAL INF ONE (09:37)
[2023-06-15] MEDS ORDERED: ACETAMINOPHEN 500 MG TABLET (FP) PO PRN (11:00)
[2023-06-15 16:02] VITALS: BP 138/67; PULSE 77; RESP 18; TEMP 98.4
== END 2023-06-15 11:10 | disposition home or self-care (01) ==
LOC: JASU-SURG 04:40
PROVIDERS: ATTEND Pain Medicine Pain Medicine
PROC: 015D3ZZ Destruction of Femoral Nerve, Percutaneous Approach (ICD-10-PCS; principal; 2023-06-15 09:30)
DX: M25.562 Pain in left knee (principal)